=== PATIENT | male | born 1950 | race Caucasian/White ===

== ENCOUNTER 2016-05-26 10:21 | Outpatient (CLI) | payer SELFPAY | END 2016-05-26 10:22 | DX: N39.0 Urinary tract infection, site not specified (principal) ==

== ENCOUNTER 2016-06-09 09:43 | Outpatient (CLI) | payer SELFPAY | END 2016-06-09 09:44 | disposition home or self-care (01) | DX: N39.0 Urinary tract infection, site not specified (principal) ==

== ENCOUNTER 2018-09-12 09:25 | Outpatient (CLI) | payer SELFPAY ==
[2018-09-12 12:28] LABS: BASOPHILS % (AUTO) 0.3 %; EOSINOPHILS % (AUTO) 0.1 %; HGB - HEMOGLOBIN 14.8 g/dL (14.0-18.0); LYMPHOCYTES # (AUTO) 0.6 10^3/uL (1.5-3.5); LYMPHOCYTES % (AUTO) 4.1 %; MEAN CORPUSCULAR HEMOGLOBIN 31.4 pg (27.0-31.0); MEAN CORPUSCULAR HGB CONC 33.6 g/dL (32.0-36.0); MEAN CORPUSCULAR VOLUME 93.4 fL (80.0-94.0); MEAN PLATELET VOLUME 9.5 fL (7.4-11.4); MONOCYTES # (AUTO) 0.9 10^3/uL (0.0-1.0); MONOCYTES % (AUTO) 5.7 %; NEUTROPHILS # (AUTO) 13.8 10^3/uL (1.5-6.6); NEUTROPHILS % (AUTO) 89.2 %; PLT - PLATELET COUNT 220 10^3/uL (130-450); RED BLOOD COUNT 4.72 10^6/uL (4.70-6.10); RED CELL DISTRIBUTION WIDTH 12.3 % (12.0-15.0); WHITE BLOOD COUNT 15.5 x10^3/uL (4.8-10.8)
[2018-09-12 12:35] LABS: ALBUMIN 4.2 g/dL (3.2-5.5); ALBUMIN/GLOBULIN RATIO 1.3 (1.0-2.2); BILIRUBIN,TOTAL 0.9 mg/dL (0.2-1.0); CALCIUM 9.1 mg/dL (8.5-10.3); CREATININE 0.6 mg/dL (0.6-1.2); TOTAL PROTEIN 7.5 g/dL (6.7-8.2)
== END 2018-09-12 23:59 | disposition home or self-care (01) ==
LOC: LAB.WCP 09:25
PROVIDERS: ATTEND Family Medicine
DX: N45.1 Epididymitis (principal)
CPT/HCPCS: 36415; 80053; 85025

== ENCOUNTER 2018-09-12 20:10 | Outpatient (CLI) | payer SELFPAY ==
--- NOTE | 2018-09-12 21:32 | Ultrasound Report ---
Reason: EPIDIDYMITIS Procedure Date: 09/12/2018 Accession Number: [id number] / [id number] Procedure: US - Testicle CPT Code: FULL RESULT: EXAM: SCROTAL ULTRASOUND EXAM DATE: 09/12/2018 08:23 PM. CLINICAL HISTORY: EPIDIDYMITIS. COMPARISON: None. TECHNIQUE: Real-time scanning was performed with static images obtained. Color-flow images were utilized. FINDINGS: Right: Testis: 4.3 x 3.0 x 2.8 cm. Normal size and echotexture. No mass, calcification, or abnormal blood flow. Epididymis: 1.6 x 1.3 cm. Body and tail appear enlarged with increased blood flow. 8 mm cyst in the epididymal head. Echogenic structure without demonstrable vascularity measuring 5 mm may reflect a spermatocele. Hydrocele: Large Varicocele: None. Left: Testis: 5.1 x 2.6 x 3.2 cm. Heterogeneous echotexture without increased blood flow. No mass, calcification, or abnormal blood flow. Epididymis: 0.8 x 1.3 cm. Normal size and echotexture. No mass or abnormal blood flow. 3 mm cyst. Hydrocele: Small Varicocele: None. IMPRESSION: Findings concerning for right epididymitis. Large right hydrocele. [facility] The call report notification system was initiated by Dr. Ambrose Jackson at 09:15 PM on 09/12/2018. The above call report findings were discussed with Dr. Jensen by Dr. Ambrose Jackson at 09:31 PM on 09/12/2018.
== END 2018-09-12 20:11 | disposition home or self-care (01) ==
LOC: DI 20:10
PROVIDERS: ATTEND Family Medicine
DX: N45.1 Epididymitis (principal); N43.3 Hydrocele, unspecified
CPT/HCPCS: 76870

== ENCOUNTER 2018-11-30 07:38 | Outpatient (CLI) | payer SELFPAY ==
[2018-11-30 11:52] LABS: BASOPHILS # (AUTO) 0.1 10^3/uL (0.0-0.1); BASOPHILS % (AUTO) 0.9 %; EOSINOPHILS # (AUTO) 0.3 10^3/uL (0.0-0.7); EOSINOPHILS % (AUTO) 4.8 %; HGB - HEMOGLOBIN 14.6 g/dL (14.0-18.0); LYMPHOCYTES # (AUTO) 1.7 10^3/uL (1.5-3.5); LYMPHOCYTES % (AUTO) 31.4 %; MEAN CORPUSCULAR HGB CONC 33.7 g/dL (32.0-36.0); MEAN CORPUSCULAR VOLUME 91.9 fL (80.0-94.0); MEAN PLATELET VOLUME 9.1 fL (7.4-11.4); MONOCYTES # (AUTO) 0.6 10^3/uL (0.0-1.0); MONOCYTES % (AUTO) 10.5 %; NEUTROPHILS # (AUTO) 2.8 10^3/uL (1.5-6.6); NEUTROPHILS % (AUTO) 51.7 %; PLT - PLATELET COUNT 214 10^3/uL (130-450); RED BLOOD COUNT 4.71 10^6/uL (4.70-6.10); RED CELL DISTRIBUTION WIDTH 13.2 % (12.0-15.0); WHITE BLOOD COUNT 5.5 x10^3/uL (4.8-10.8)
[2018-11-30 12:52] LABS: ALBUMIN 4.4 g/dL (3.2-5.5); ALBUMIN/GLOBULIN RATIO 1.5 (1.0-2.2); ALKALINE PHOSPHATASE 72 IU/L (42-121); ALT ALANINE AMINOTRANSFERASE 35 IU/L (10-60); AST ASPARTATE AMINOTRANSFERASE 24 IU/L (10-42); BUN - BLOOD UREA NITROGEN 13 mg/dL (6-20); CALCIUM 9.3 mg/dL (8.5-10.3); CARBON DIOXIDE - CO2 28 mmol/L (21-32); CHLORIDE 97 mmol/L (101-111); CHOL/HDL RATIO 4.9 (<5.0); CHOLESTEROL 193 mg/dL; CREATININE 0.6 mg/dL (0.6-1.2); GFR - MDRD 134 (>89); GLUCOSE 146 mg/dL (70-100); HDL CHOLESTEROL 39 mg/dL; LDL CHOLESTEROL,CALCULATED 111 mg/dL; LDL/HDL RATIO 2.8 (<3.6); SODIUM 135 mmol/L (135-145); TOTAL PROTEIN 7.4 g/dL (6.7-8.2); VLDL CHOLESTEROL 43 mg/dL
[2018-11-30 13:11] LABS: HB2 TOTAL 14.8 g/dL; HEMOGLOBIN A1C 0.84 g/dL; HEMOGLOBIN A1C % 7.3 % (4.6-6.2)
== END 2018-11-30 23:59 | disposition home or self-care (01) ==
LOC: LAB.WCP 07:38
PROVIDERS: ATTEND Family Medicine
DX: E11.9 Type 2 diabetes mellitus without complications (principal); I10 Essential (primary) hypertension; I25.10 Atherosclerotic heart disease of native coronary artery without angina pectoris
CPT/HCPCS: 36415; 80053; 80061; 82043; 82570; 83036; 83721; 84443; 85025

== ENCOUNTER 2019-03-06 15:10 | Outpatient (CLI) | payer OTHER ==
--- NOTE | 2019-03-07 12:35 | XRAY Report ---
Reason: OTHER SPRAIN OF RT FOOT Procedure Date: 03/06/2019 Accession Number: [id number] / [id number] Procedure: XR - Foot 3 View RT CPT Code: Final Report FULL RESULT: EXAM: RIGHT FOOT RADIOGRAPHY EXAM DATE: 03/06/2019 03:33 PM. CLINICAL HISTORY: Sprain of right foot. COMPARISON: None. TECHNIQUE: 3 views. FINDINGS: Bones: Normal. No fractures or bone lesions. Joints: Normal. No subluxations. Soft Tissues: Normal. No soft tissue swelling. IMPRESSION: No convincing fracture or dislocation. RAD[facility]
== END 2019-03-06 15:11 | disposition home or self-care (01) ==
LOC: DI 15:10
PROVIDERS: ATTEND Physician Assistant
DX: S93.691A Other sprain of right foot, initial encounter (principal)

== ENCOUNTER 2021-12-05 12:33 | Outpatient (CLI) | payer MEDICARE ==
--- NOTE | 2021-12-05 18:34 | CT Report ---
PROCEDURE: Low Dose Lung Cancer Screen INDICATIONS: FORMER SMOKER TECHNIQUE: Noncontrast low-dose axial images were acquired from the pulmonary apices to the posterior costophren ic angles. Multiplanar MIP reformats were then reconstructed. For radiation dose reduction, the follo wing was used: automated exposure control, adjustment of mA and/or kV according to patient size. COMPARISON: None. FINDINGS: Image quality: Excellent. Lungs and pleura: No suspicious pulmonary nodules. No acute airspace disease identified. No septal t hickening or nodularity. No pleural effusion or pneumothorax. Mediastinum: Heart size is normal. No pericardial effusion. Moderate atherosclerotic calcification s of the coronary arteries. No mediastinal adenopathy by size criteria. Thoracic aorta and central p ulmonary arteries are normal in size. Atherosclerotic calcifications noted in the aortic arch. Esopha coleman is normal in caliber. No hiatal hernia. Bones and chest wall: No suspicious bony lesions. No acute vertebral body compression fractures. N o axillary or supraclavicular adenopathy by size criteria. The thyroid is normal in size and there a re no incidental findings. Abdomen: Visualized upper abdomen solid organs and bowel loops appear normal in the absence of contr ast. IMPRESSION: CT chest without acute cardiopulmonary abnormalities. No suspicious pulmonary nodules. Moderate atherosclerotic vascular disease. LUNG RADS 1 (negative): Recommend continued annual screening with low dose chest CT as long as patien t continues to meet screening criteria. CLINICAL RECOMMENDATION STATEMENTS: In patients <35 years with an ITN detected on CT, MRI, or extrathyroidal ultrasound, the Committee re commends further evaluation with dedicated thyroid ultrasound if the nodule is "e1 cm and has no susp icious imaging features, and if the patient has normal life expectancy. In patients "e35 years with an ITN detected on CT, MRI, or extrathyroidal ultrasound, the Committee r ecommends further evaluation with dedicated thyroid ultrasound if the nodule is "e1.5 cm and has no s uspicious imaging features, and if the patient has normal life expectancy. (ACR, 2014) Reviewed by: Rob Chan MD on 12/05/2021 6:33 PM PDT Approved by: Rob Chan MD on 12/05/2021 6:33 PM PDT Station ID: [id number]
== END 2021-12-05 12:34 | disposition home or self-care (01) ==
LOC: DI 12:33
PROVIDERS: ATTEND Student in an Organized Health Care Education/Training Program
DX: Z87.891 Personal history of nicotine dependence (principal); Z12.2 Encounter for screening for malignant neoplasm of respiratory organs; I25.10 Atherosclerotic heart disease of native coronary artery without angina pectoris

== ENCOUNTER 2022-07-28 09:05 | Emergency (ER) | payer OTHER, MEDICARE ==
[2022-07-28 09:55] VITALS: BP 162/88
--- NOTE | 2022-07-28 10:34 | XRAY Report ---
PROCEDURE: Foot 3 View LT INDICATIONS: Trauma TECHNIQUE: 3 views of the foot were acquired. COMPARISON: None FINDINGS: Bones: Scattered degenerative changes, most significant at the first MTP, where there is moderate ar throsis. No displaced fracture or dislocation. Plantar calcaneal enthesopathy. Soft tissues: No suspicious calcifications elsewhere. IMPRESSION: No acute radiographic abnormality. Scattered degenerative changes. If there is high concern for occul t injury, consider repeat radiography or cross-sectional imaging. Reviewed by: Jarred Dill MD on 07/28/2022 10:33 AM PDT Approved by: Jarred Dill MD on 07/28/2022 10:33 AM PDT Station ID: [id number]
--- NOTE | 2022-07-28 10:52 | ED Physician Documentation ---
PD HPI LOWER EXT INJURY - Stated complaint Stated Complaint: LT FOOT INJ - Chief complaint Chief Complaint: Trauma Ext - History obtained from History obtained from: Patient - Additional information Additional information: Patient is a 71-year-old male on Plavix presenting for evaluation of injury to the left foot that occurred 1 week ago. Patient states that he was stepping out of a truck when he accidentally hit it against a compressor. He has noted bruising and swelling to the area. He has been able to ambulate but it is painful. He has not taken anything for the pain. Review of Systems Constitutional: denies: Fever Cardiac: denies: Chest pain / pressure GI: denies: Abdominal Pain Musculoskeletal: reports: Extremity pain Neurologic: denies: Head injury PD PAST MEDICAL HISTORY - Past Medical History Cardiovascular: Hypertension, High cholesterol, Coronary artery disease, [place] Endocrine/Autoimmune: Type 2 diabetes : Chronic bladder infection, Other (orchitis/epididymitis) - Past Surgical History Past Surgical History: Yes Cardiovascular: Coronary stent - Present Medications Home Medications: Ambulatory Orders Medication Instructions Recorded Confirmed Aspirin [Aspir 81] 81 mg PO DAILY 09/12/13 07/11/14 Bp Pill 09/12/13 07/11/14 Clopidogrel [Plavix] 75 mg PO DAILY 09/12/13 07/11/14 Statin 09/12/13 07/11/14 Oxycodone HCl/Acetaminophen 1 - 2 each PO Q6H PRN #15 tablet 07/11/14 [Percocet 5-325 mg Tablet] Tamsulosin [Flomax] 0.4 mg PO DAILY #5 capsule 07/11/14 - Allergies Allergies/Adverse Reactions: Allergies Allergy/AdvReac Type Severity Reaction Status Date / Time No Known Drug Allergies Allergy Verified 07/28/22 09:44 - Social History Does the pt smoke?: Yes Smoking Status: Current every day smoker Does the pt drink ETOH?: Yes Does the pt have substance abuse?: No - Immunizations Immunizations are current?: Yes - POLST Patient has POLST: No PD ED PE NORMAL - General General: Alert and oriented X 3, No acute distress, Well developed/nourished - HEENT HEENT: Atraumatic - Neck Neck: Supple, no meningeal sign - Cardiac Cardiac: Strong equal pulses - Respiratory Respiratory: No respiratory distress - Derm Derm: Warm and dry - Extremities Extremities: Other (Bruising and tenderness over first MTP, normal range of motion at all joints, extremities are warm and well-perfused, compartments of foot are soft) Results - Vitals Vitals: Vital Signs - 24 hr 07/28/22 09:45 Temperature 37 C Heart Rate 73 Respiratory 16 Rate Blood Pressure 162/88 H O2 Saturation 99 Oxygen O2 Source Room air PD Medical Decision Making - ED course Complexity details: reviewed results, d/w patient ED course: Patient with injury to left first digit. Vital signs are stable. Neurovascularly intact. No open injuries. X-ray was reviewed by me and I see no fracture or dislocation. He does have soft tissue swelling and bruising likely due to the trauma and also from being on Plavix. Patient was counseled on continued supportive care. He declines Lencho wrap or hard sole shoe or crutches. He does not want anything for pain. He was counseled on need for close follow-up if the symptoms or not improving. Departure - Departure Disposition: 01 Home, Self Care Clinical Impression: Contusion of left foot Condition: Stable Instructions: ED Sprain Foot Comments: Your x-ray does not show a broken bone. However you do have a bruise to the area which is taking some time to heal. Please continue to ice, elevate and use anti-inflammatories such as acetaminophen.If your symptoms or not getting better then I would recommend close follow-up with your primary care. Forms: Activity restrictions Discharge Date/Time: 07/28/22 11:05
== END 2022-07-28 11:05 | disposition home or self-care (01) ==
LOC: ED 09:05
DX: S90.32XA Contusion of left foot, initial encounter (principal); W22.8XXA Striking against or struck by other objects, initial encounter; Y93.89 Activity, other specified; I10 Essential (primary) hypertension; E11.9 Type 2 diabetes mellitus without complications; E78.00 Pure hypercholesterolemia, unspecified; I25.10 Atherosclerotic heart disease of native coronary artery without angina pectoris; I25.2 Old myocardial infarction; F17.200 Nicotine dependence, unspecified, uncomplicated; Z79.02 Long term (current) use of antithrombotics/antiplatelets; Z79.82 Long term (current) use of aspirin; Z79.899 Other long term (current) drug therapy
CPT/HCPCS: 1040M; 73630; 99283

== ENCOUNTER 2023-11-09 12:48 | Emergency (ER) | payer OTHER, MEDICARE ==
--- NOTE | 2023-11-09 13:04 | ED Physician Documentation ---
History of Present Illness - Stated complaint Stated Complaint: FELL/HEAD AND ELBOW IMPACT - History obtained from History obtained from: Patient - History of Present Illness Timing: Prior to arrival (101) - Additonal information Additional information: Patient is a 73-year-old male who presents to the emergency department after a fall off a ladder about 5 steps. Patient was fixing a window when he fell backwards. He was able to get back up and go back to work however his boss insisted he come in. Patient is on Plavix. He did take his dose this morning. He landed on his left elbow and continues to have pain and swelling to his left elbow. He denies any loss of consciousness. He is able to answer questions ANO x 3 on arrival. She denies any neck pain or lower back pain after his fall. Patient denies any pain. PD PAST MEDICAL HISTORY - Past Medical History Cardiovascular: Hypertension, High cholesterol, Coronary artery disease, [place] Endocrine/Autoimmune: Type 2 diabetes : Chronic bladder infection, Other (orchitis/epididymitis) - Past Surgical History Past Surgical History: Yes Cardiovascular: Coronary stent - Present Medications Home Medications: Ambulatory Orders Medication Instructions Recorded Confirmed Aspirin [Aspir 81] 81 mg PO DAILY 09/12/13 07/11/14 Bp Pill 09/12/13 07/11/14 Clopidogrel [Plavix] 75 mg PO DAILY 09/12/13 07/11/14 Statin 09/12/13 07/11/14 Oxycodone HCl/Acetaminophen 1 - 2 each PO Q6H PRN #15 tablet 07/11/14 [Percocet 5-325 mg Tablet] Tamsulosin [Flomax] 0.4 mg PO DAILY #5 capsule 07/11/14 - Allergies Allergies/Adverse Reactions: Allergies Allergy/AdvReac Type Severity Reaction Status Date / Time No Known Drug Allergies Allergy Verified 11/09/23 13:03 - Social History Does the pt smoke?: Yes Smoking Status: Current every day smoker Does the pt drink ETOH?: Yes Does the pt have substance abuse?: No - Immunizations Immunizations are current?: Yes - POLST Patient has POLST: No PD ED PE NORMAL - Vitals Vital signs reviewed: Yes - General General: Alert and oriented X 3 - HEENT HEENT: Atraumatic - Neck Neck: Supple, no meningeal sign - Cardiac Cardiac: RRR, No murmur, No gallop, No rub - Respiratory Respiratory: No respiratory distress, Clear bilaterally - Derm Derm: Normal color, Warm and dry, No rash - Extremities Extremities: No deformity - Neuro Neuro: Alert and oriented X 3, 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 Pupils are equal round reactive to light and accommodation.C-spine no spinal tenderness on examination, full ROM Results - Vitals Vitals: Vital Signs - 24 hr 11/09/23 11/09/23 11/09/23 12:54 13:33 14:03 Temperature 36.9 C Heart Rate 87 85 65 Respiratory 18 19 95 H Rate Blood Pressure 141/89 H 137/76 H 138/75 H O2 Saturation 95 94 17 L Oxygen O2 Source Room air - Labs Labs: Laboratory Tests 11/09/23 11/09/23 11/09/23 13:44 13:44 13:44 WBC 6.9 RBC 4.43 L Hgb 13.8 L Hct 40.8 L MCV 92.1 MCH 31.2 H MCHC 33.8 RDW 12.3 Plt Count 189 MPV 9.0 Neut # (Auto) 5.1 Lymph # (Auto) 1.1 L Stanton # (Auto) 0.5 Eos # (Auto) 0.1 Baso # (Auto) 0.0 Absolute Nucleated RBC 0.00 Nucleated RBC % 0.0 PT 12.4 INR 1.1 Sodium 136 Potassium 3.7 Chloride 101 Carbon Dioxide 28 Anion Gap 7.0 BUN 14 Creatinine 0.6 Estimated GFR (MDRD) 132 Glucose 166 H Calcium 9.5 Total Bilirubin 0.7 AST 16 ALT 24 Alkaline Phosphatase 58 Total Protein 6.6 Albumin 4.4 Globulin 2.2 Albumin/Globulin Ratio 2.0 - Rads (name of study) CT head Relevant Findings:: EMP independent interpretation of test CT neck Relevant Findings:: EMP independent interpretation of test left elbow x-ray Relevant Findings:: EMP independent interpretation of test PD Medical Decision Making - ED course Complexity details: reviewed old records, reviewed results, re-evaluated patient ED course: Patient is a 73-year-old male who presents to the emergency department after falling about 5 steps off of a ladder. Patient notes this occurred around 1015. He went back to work shortly after. His boss informed him that he should come in to be evaluated. He does endorse hitting his head during his fall and is on Plavix. He took his medication this morning. Patient denies any loss of consciousness. He denies any neck pain but does report left elbow pain. He walked into the emergency department without difficulty. Vitals are stable on arrival. Physical exam shows no cranial deficits. He has full strength intact in upper and lower extremities. Swelling noted to posterior elbow but full range of motion on flexion and extension of left elbow intact. Patient has good pulses radially distally. Good sensation in digits 1 through 5 intact. No significant tenderness to left elbow on examination. Patient had modified trauma called given 5 steps falling off a ladder and he is on Plavix. Patient sent for CT head and CT neck as it could not be cleared due to possible distracting injuries. CT scan of head shows no acute intracranial abnormalities. CT scan of neck shows no acute fractures. X-rays of elbow show no acute fracture or effusion. Patient updated on reassuring findings. Patient continues to deny any significant pain at this time. Basic labs obtained here in the emergency department show no leukocytosis hemoglobin is stable no prolonged INR. Patient updated on reassuring findings and is safe for discharge home. Struck to patient to return with any worsening pain headaches vision changes he is agreeable with this plan. Instructed patient to return to the emergency department with any new or worsening symptoms. Patient is agreeable with this plan. Departure - Departure Disposition: 01 Home, Self Care Clinical Impression: Fall from ladder, Injury of left elbow Condition: Good Comments: You were seen here in the emergency department for your fall from ladder your workup here showed no head injury no acute fracture. You can take Tylenol 1000 mg every 8 hours for pain control. You should return to the emergency department with any worsening pain numbness headaches fevers. Follow-up with your PCP in 1 week for reevaluation.
--- NOTE | 2023-11-09 13:25 | CT Report ---
PROCEDURE: Cervical Spine WO INDICATIONS: fall on head on plavix TECHNIQUE: Noncontrast 3 mm thick sections acquired from the skull base to the T4 level. Sagittal and coronal r eformats were then constructed. For radiation dose reduction, the following was used: automated exp osure control, adjustment of mA and/or kV according to patient size. COMPARISON: None. FINDINGS: Image quality: Excellent. Bones: No fractures or dislocations. Visualized superior ribs are intact. Spine degenerative disc d isease and facet arthropathy are noted. Soft tissues: Prevertebral soft tissues are normal in thickness. No paravertebral hematomas. No ap ical pneumothoraces. IMPRESSION: No fracture. No acute osseous lesion. If there is continued clinical concern for pathology, then MRI should be considered for further evaluation. Reviewed by: Marcia Friend MD, PhD on 11/09/2023 1:24 PM PDT Approved by: Marcia Friend MD, PhD on 11/09/2023 1:24 PM PDT Station ID: [id number]
--- NOTE | 2023-11-09 13:28 | CT Report ---
PROCEDURE: Head WO INDICATIONS: fall on head on plavix TECHNIQUE: Noncontrast 4.5 mm thick angled axial sections acquired from the foramen magnum to the vertex. For r adiation dose reduction, the following was used: automated exposure control, adjustment of mA and/or kV according to patient size. COMPARISON: None. FINDINGS: Image quality: Excellent. CSF spaces: Basal cisterns are patent. No extra-axial fluid collections. Ventricles are normal in size and shape. Brain: No midline shift. No intracranial masses or hemorrhage. Giles-white matter interface is norm al. Skull and face: Calvarium and visualized facial bones are intact, without suspicious lesions. Metal cerclage wire in the right superior-lateral osseous orbit Sinuses: Visualized sinuses and mastoids are clear. IMPRESSION: No acute intracranial disease process. Reviewed by: Marcia Friend MD, PhD on 11/09/2023 1:27 PM PDT Approved by: Marcia Friend MD, PhD on 11/09/2023 1:27 PM PDT Station ID: [id number]
--- NOTE | 2023-11-09 13:32 | XRAY Report ---
PROCEDURE: Elbow 3+V LT INDICATIONS: left elbow pain and swelling TECHNIQUE: 3 views of the elbow were acquired. COMPARISON: None. FINDINGS: Bones: No fractures or dislocations. No suspicious bony lesions. Soft tissues: No effusion. No suspicious soft tissue calcifications or masses. IMPRESSION: No acute bony abnormality or significant joint effusion. Reviewed by: Marcia Friend MD, PhD on 11/09/2023 1:30 PM PDT Approved by: Marcia Friend MD, PhD on 11/09/2023 1:30 PM PDT Station ID: [id number]
[2023-11-09 13:51] LABS: BASOPHILS % (AUTO) 0.6 %; EOSINOPHILS # (AUTO) 0.1 10^3/uL (0.0-0.7); EOSINOPHILS % (AUTO) 1.4 %; HCT - HEMATOCRIT 40.8 % (42.0-52.0); HGB - HEMOGLOBIN 13.8 g/dL (14.0-18.0); LYMPHOCYTES # (AUTO) 1.1 10^3/uL (1.5-3.5); LYMPHOCYTES % (AUTO) 15.8 %; MEAN CORPUSCULAR HEMOGLOBIN 31.2 pg (27.0-31.0); MEAN CORPUSCULAR HGB CONC 33.8 g/dL (32.0-36.0); MEAN CORPUSCULAR VOLUME 92.1 fL (80.0-94.0); MONOCYTES # (AUTO) 0.5 10^3/uL (0.0-1.0); MONOCYTES % (AUTO) 7.4 %; NEUTROPHILS # (AUTO) 5.1 10^3/uL (1.5-6.6); NEUTROPHILS % (AUTO) 74.5 %; PLT - PLATELET COUNT 189 10^3/uL (130-450); RED BLOOD COUNT 4.43 10^6/uL (4.70-6.10); RED CELL DISTRIBUTION WIDTH 12.3 % (12.0-15.0); WHITE BLOOD COUNT 6.9 x10^3/uL (4.8-10.8)
[2023-11-09 13:57] LABS: INR 1.1 (0.8-1.2); PT - PROTHROMBIN TIME 12.4 secs (9.9-12.6)
[2023-11-09 14:04] LABS: ALBUMIN 4.4 g/dL (3.2-5.5); BILIRUBIN,TOTAL 0.7 mg/dL (0.2-1.0); CALCIUM 9.5 mg/dL (8.5-10.3); CREATININE 0.6 mg/dL (0.6-1.3); POTASSIUM 3.7 mmol/L (3.5-4.5); TOTAL PROTEIN 6.6 g/dL (6.4-8.9)
[2023-11-09 14:45] VITALS: BP 124/66; O2SAT 95
== END 2023-11-09 14:33 | disposition home or self-care (01) ==
LOC: ED 12:48
DX: S59.902A Unspecified injury of left elbow, initial encounter (principal); W11.XXXA Fall on and from ladder, initial encounter; Y93.89 Activity, other specified; Y99.0 Civilian activity done for income or pay; F17.200 Nicotine dependence, unspecified, uncomplicated
CPT/HCPCS: 1040M; 36415; 70450; 72125; 73080; 80053; 85025; 85610; 99284